=== PATIENT | female | born 1990 | race Caucasian/White ===

== ENCOUNTER 2019-01-19 09:39 | Emergency (ER) | payer OTHER ==
[2019-01-19 10:40] LABS: Absolute Lymphocytes (CBC) 2.6 K/uL (0.7-4.9); Basophils % 0.5 % (0-1.3); Eosinophils % 1.7 % (0-4.4); Hematocrit 44.8 % (36.0-45.0); Lymphocytes % 23.3 % (15.3-44.8); MPV 10.5 fL (7.6-11.3); Monocytes % 3.7 % (3.3-12.3); RBC Red Blood Cell Count 5.19 M/uL (3.86-4.86)
[2019-01-19 10:54] LABS: ALT/SGPT 19 U/L (12-78); AST/SGOT 10 U/L (15-37); Albumin 3.8 g/dL (3.4-5.0); Alkaline Phosphatase 68 U/L (45-117); BUN Blood Urea Nitrogen 10 mg/dL (7-18); Bicarbonate 22 mmol/L (21-32); Bilirubin Direct < 0.1 mg/dL (0-0.2); Bilirubin Total 0.4 mg/dL (0.2-1.0); Glucose Level 91 mg/dL (74-106); Lipase 115 U/L (73-393); Potassium 4.1 mmol/L (3.5-5.1); Protein, Total 7.3 g/dL (6.4-8.2); Sodium Level 142 mmol/L (136-145)
--- NOTE | 2019-01-19 11:03 | RAD REPORT ---
EXAM DESCRIPTION: CT - Stone Protocol - 01/19/2019 10:49 am CLINICAL HISTORY: Flank pain. bilateral pelvic pain L>R COMPARISON: <Comparisons> TECHNIQUE: Axial images were obtained without oral or IV contrast. Lack of contrast limits solid org an and vascular assessment. The [id number] spans the entirety of the system partially obscuring uppermost abdomen and lung bases. Coronal reformatted images were obtained and reviewed. All CT scans are performed using dose optimization technique as appropriate and may include automated exposure control or mA/KV adjustment according to patient size. FINDINGS: The lower lung park are clear. Imaged portions of the liver and spleen show no suspicious findings on non-contrast imaging. The panc reas and adrenal glands are normal. No pathologic lymphadenopathy in the abdomen or pelvis. No urinary tract stones or obstructive uropathy. No bowel obstruction, free air, free fluid or abscess. Sigmoid diverticulosis without diverticulitis. Normal appendix noted.Small fat containing umbilical hernia. No significant bony abnormality. IMPRESSION: No urinary tract stones or obstructive uropathy.
[2019-01-19 11:32] LABS: Platelet Estimate ADEQ; Urine White Blood Cell Casts OK
[2019-01-19 11:33] LABS: Blood Morphology Comment NOT SEEN (NOT SEEN)
--- NOTE | 2019-01-19 11:33 | RAD REPORT ---
EXAM DESCRIPTION: US - Pelvis Complete - 01/19/2019 11:26 am CLINICAL HISTORY: pelvic pain, rule out torsion/ruptured cyst Pelvic pain. COMPARISON: No comparisons FINDINGS: The uterus is normal in size, shape and echotexture. The uterus measures 7.5 x 4.9 x 4.2 c m. The endometrial stripe measures 8 mm, normal. Both ovaries are normal in size, shape and echotexture. The right ovary measures 2.0 x 1.4 x 0.9 cm. The left ovary measures 2.8 x 1.9 x 1.1 cm. No ovarian or parovarian lesions. No adnexal masses. Normal Doppler blood flow was demonstrated to both ovaries. No significant pelvic ascites. IMPRESSION: Unremarkable study.
[2019-01-19 11:50] LABS: Urine Bacteria <20 /HPF (<20); Urine Culture Reflex Order NOT NEEDED; Urine RBC <5 /HPF (NONE SEEN)
--- NOTE | 2019-01-19 12:14 | ER ---
Nurse's Notes [facility] Name: Licha Hazel Age: 28 yrs Sex: Female : 1990 Arrival Date: 01/19/2019 Time: 09:41 Bed 15 Private MD: Diagnosis: Abdominal and pelvic pain Presentation: 01/19 09:50 Presenting complaint: Patient states: Urine frequency and vaginal discharge, denies rb1 odor. Abdominal pain in the lower abdomen. Transition of care: patient was not received from another setting of care. Risk Assessment: Do you want to hurt yourself or someone else? Patient reports no desire to harm self or others. Initial Sepsis Screen: Does the patient meet any 2 criteria? No. Patient's initial sepsis screen is negative. Does the patient have a suspected source of infection? No. Patient's initial sepsis screen is negative. Care prior to arrival: None. 09:50 Method Of Arrival: Ambulatory [facility] 09:50 Acuity: HUGO 3 rb1 09:50 Onset of symptoms was January 19, 2019. rb1 Triage Assessment: 09:50 General: Appears in no apparent distress. comfortable, Behavior is calm, cooperative. rb1 General: Reports fatigue for. Pain: Complains of pain in right lower quadrant and left lower quadrant Pain radiates to left low back and bilateral legs Pain currently is 8 out of 10 on a pain scale. Neuro: Level of Consciousness is awake, alert, obeys commands, Oriented to person, place, time, situation. Cardiovascular: Capillary refill < 3 seconds is brisk in bilateral fingers. Respiratory: Airway is patent Respiratory effort is even, unlabored, Respiratory pattern is regular, symmetrical. GI: Reports constipation, nausea. : Reports urinary frequency. : Reports normal vaginal discharge, denies odor. Derm: Skin is pink, warm \T\ dry. Musculoskeletal: Range of motion: intact in all extremities. 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 - Social history:: Smoking status: Patient/guardian denies using tobacco. - Family history:: not pertinent. - Ebola Screening: : Patient negative for fever greater than or equal to 101.5 degrees Fahrenheit, and additional compatible Ebola Virus Disease symptoms. - Hospitalizations: : No recent hospitalization is reported. Screenin:50 Abuse screen: Denies threats or abuse. Nutritional screening: No deficits noted. rb1 Tuberculosis screening: No symptoms or risk factors identified. Fall Risk None identified. Assessment: 09:50 General: See triage assessment. rb1 10:40 Reassessment: Patient appears in no apparent distress at this time. No changes from rb1 previously documented assessment. 10:45 Reassessment: Pt. went to CT. rb1 Vital Signs: 09:50 BP 140 / 96; Pulse 110; Resp 17; Temp 99.0(O); Pulse Ox 98% on R/A; Weight 86.18 kg rb1 (R); Height 5 ft. 5 in. (165.10 cm) (R); Pain 8/10; 09:50 Body Mass Index 31.62 (86.18 kg, 165.10 cm) rb1 ED Course: 09:41 Patient arrived in ED. as 09:50 Juliano Caba MD is Attending Physician. rn 09:50 Arm band placed on right wrist. rb1 09:50 Patient has correct armband on for positive identification. Bed in low position. Call rb1 light in reach. Side rails up X 1. Pulse ox on. NIBP on. 09:50 Inserted saline lock: 20 gauge in left forearm, using aseptic technique. ,using aseptic rb1 technique. Inserted by ZAK Lezama Blood collected. 10:20 Radiology exam delayed due to tech with OUT-PT US. sg3 10:34 Krysten Smith, RN is Primary Nurse. rb1 10:38 Triage completed. rb1 10:40 Radiology exam delayed due to PT in CT. sg3 10:49 CT completed. Patient tolerated procedure well. Patient moved back from CT. mw3 10:49 CT Stone Protocol In Process Unspecified. EDMS 11:26 US Pelvis Complete In Process Unspecified. EDMS 11:29 Ultrasound completed. Patient tolerated well. sg3 12:48 No provider procedures requiring assistance completed. IV discontinued, intact, rb1 bleeding controlled, No redness/swelling at site. Pressure dressing applied. Administered Medications: No medications were administered Outcome: 12:14 Discharge ordered by . rn 12:48 Patient left the ED. rb1 12:48 Discharged to home ambulatory. rb1 12:48 Condition: stable 12:48 Discharge instructions given to patient, Instructed on discharge instructions, follow up and referral plans. medication usage, Demonstrated understanding of instructions, follow-up care, medications, Prescriptions given X 1. Signatures: Dispatcher [employer] Mariluz Stahl Roman, MD MD rn Barber, ZAK Bashir RN rb1 Shelia Cedeno sg3 Julia Kuo mw3 Corrections: (The following items were deleted from the chart) 11:29 10:20 Radiology exam delayed due to with OUT PT US sg3 sg3 11:30 10:20 Radiology exam delayed due to with OUT-PT US sg3 sg3
--- NOTE | 2019-01-19 12:14 | EDPHYS ---
Physician Documentation [facility] Name: Licha Hazel Age: 28 yrs Sex: Female : 1990 Arrival Date: 01/19/2019 Time: 09:41 Bed 15 Private MD: ED Physician Juliano Caba HPI: 01/19 10:08 This 28 yrs old Female presents to ER via Unassigned with complaints of rn Pelvic Pain, Back Pain. 10:08 The patient presents with abdominal pain in the lower abdomen. Onset: The rn symptoms/episode began/occurred several months ago. The symptoms radiate to The symptoms are described as intermittent, sharp. Modifying factors: The symptoms are alleviated by nothing, the symptoms are aggravated by nothing. Severity of pain: At its worst the pain was moderate in the emergency department the pain is unchanged. Reports lower abd/pelvic pain, bilateral but worse on left, radiates to both sides lower back, no urinary symptoms, no vaginal discharge, no hematuria, no fever. Seen by MENTAL HEALTH NURSE PRACTITIONER and PCP for this, scheduled for outpt U/S but has not gotten it yet, came here because not getting better, but also not getting worse. On control, LMP 2 months ago. Reports that this has been going on for a few months now. . 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 - Social history:: Smoking status: Patient/guardian denies using tobacco. - Family history:: not pertinent. - Ebola Screening: : Patient negative for fever greater than or equal to 101.5 degrees Fahrenheit, and additional compatible Ebola Virus Disease symptoms. - Hospitalizations: : No recent hospitalization is reported. ROS: 10:08 Constitutional: Negative for fever, chills, and weight loss, Eyes: Negative for injury, rn pain, redness, and discharge, Neck: Negative for injury, pain, and swelling, Cardiovascular: Negative for chest pain, palpitations, and edema, Respiratory: Negative for shortness of breath, cough, wheezing, and pleuritic chest pain, Abdomen/GI: + abd pain, negative for nausea/vomiting/diarrhea Back: Negative for injury MS/Extremity: Negative for injury and deformity, Skin: Negative for injury, rash, and discoloration, Neuro: Negative for headache, weakness, numbness, tingling, and seizure. Exam: 10:08 Constitutional: This is a well developed, well nourished patient who is awake, alert, rn appears in pain, sitting legs crossed on stretcher. Head/Face: Normocephalic, atraumatic. ENT: MMM Abdomen/GI: soft, mild tenderness LLQ, no rebound Back: No spinal tenderness. No costovertebral tenderness. Full range of motion. Skin: Warm, dry with normal turgor. Normal color with no rashes, no lesions, and no evidence of cellulitis. MS/ Extremity: Pulses equal, no cyanosis. Neurovascular intact. Full, normal range of motion. Equal circumference. Neuro: Awake and alert, GCS 15, oriented to person, place, time, and situation. Cranial nerves II-XII grossly intact. Motor strength 5/5 in all extremities. Sensory grossly intact. Cerebellar exam normal. Normal gait. Vital Signs: 09:50 BP 140 / 96; Pulse 110; Resp 17; Temp 99.0(O); Pulse Ox 98% on R/A; Weight 86.18 kg rb1 (R); Height 5 ft. 5 in. (165.10 cm) (R); Pain 8/10; 09:50 Body Mass Index 31.62 (86.18 kg, 165.10 cm) rb1 MDM: 09:50 Patient medically screened. rn 12:07 Differential diagnosis: appendicitis, Endometriosis, non-specific abd pain, Ovarian rn Torsion, Ureterolithiasis, urinary tract infection, ovarian cyst, diverticulitis. 12:08 Data reviewed: vital signs, nurses notes, lab test result(s), radiologic studies, CT rn scan, and as a result, I will discharge patient. Counseling: I had a detailed discussion with the patient and/or guardian regarding: the historical points, exam findings, and any diagnostic results supporting the discharge/admit diagnosis, lab results, radiology results, the need for outpatient follow up, to return to the emergency department if symptoms worsen or persist or if there are any questions or concerns that arise at home. Special discussion: Based on the patient's Hx, exam, and Dx evaluation, there is no indication for emergent surgery or inpatient Tx. It is understood by the patient/guardian that if the Sx's persist or worsen they need to return immediately for re-evaluation. I discussed with the patient/guardian in detail that at this point there is no indication for admission to the hospital. It is understood, however, that if the symptoms persist or worsen the patient needs to return immediately for re-evaluation. 01/19 09:58 Order name: Basic Metabolic Panel; Complete Time: 11:00 rn 01/19 09:58 Order name: CBC with Diff; Complete Time: 11: rn 01/19 09:58 Order name: Creatinine for Radiology; Complete Time: : rn 01/19 09:58 Order name: Hepatic Function; Complete Time: : rn 01/19 09:58 Order name: Lipase; Complete Time: 11: rn 01/19 09:58 Order name: Urine Microscopic Only; Complete Time: 12:07 rn 01/19 09:58 Order name: IV Saline Lock; Complete Time: 10:20 rn 01/19 09:58 Order name: Labs collected and sent; Complete Time: 10:20 rn 01/19 09:58 Order name: Urine Test (obtain specimen); Complete Time: 10:19 rn 01/19 09:58 Order name: CT Stone Protocol; Complete Time: 11: rn 01/19 09:58 Order name: US Pelvis Complete; Complete Time: 11:41 rn 01/19 10:05 Order name: Urine Dipstick--Ancillary (enter results) 01/19 10:05 Order name: Urine --Ancillary (enter results) 01/19 10:53 Order name: CBC Smear Scan; Complete Time: 11:41 EDPA 01/19 09:58 Order name: Urine Dipstick-Ancillary (obtain specimen); Complete Time: 10:19 rn Administered Medications: No medications were administered Disposition: 01/19/19 12:14 Discharged to Home. Impression: Abdominal and pelvic pain. - Condition is Stable. - Discharge Instructions: Pelvic Pain, Female. - Prescriptions for Diclofenac Sodium 75 mg Oral Tablet Sustained Release - take 1 tablet by ORAL route 2 times per day; 30 tablet. - Medication Reconciliation Form, Thank You Letter, Antibiotic Education, Prescription Opioid Use form. - Follow up: Private Physician; When: As needed; Reason: Recheck today's complaints, Re-evaluation by your physician. - Problem is new. - Symptoms have improved. Signatures: Dispatcher [employer] EDJuliano Corona MD MD rn Krysten Smith RN RN rb1 Corrections: (The following items were deleted from the chart) 12:48 12:14 01/19/2019 12:14 Discharged to Home. Impression: Abdominal and pelvic pain. rb1 Condition is Stable. Forms are Medication Reconciliation Form, Thank You Letter, Antibiotic Education, Prescription Opioid Use. Follow up: Private Physician; When: As needed; Reason: Recheck today's complaints, Re-evaluation by your physician. Problem is new. Symptoms have improved. rn
[2019-01-19 13:15] LABS: Urine Blood NEGATIVE (NEG); Urine Glucose NEGATIVE (NEG); Urine Protein NEGATIVE (NEG)
== END 2019-01-19 12:48 | disposition home or self-care (01) ==
LOC: ER 09:39
DX: R10.30 Lower abdominal pain, unspecified (principal); R10.2 Pelvic and perineal pain
CPT/HCPCS: 36415; 74176; 76377; 76856; 80048; 80076; 81003; 81015; 81025; 83690; 85025; 99284

== ENCOUNTER 2019-06-15 11:17 | Emergency (ER) | payer OTHER ==
--- OUTSIDE RECORDS SUMMARY | 2019-06-15 11:19 | XMS REPORT ---
:1990 Author Care Team Providers Name Role Phone TOM BENNETT MD Primary Care Provider [phone] Allergies Code Code System Name Reaction Severity Status Onset NKDA Medications Name Status Start Date Stop Date amitriptyline 50 mg tablet Active Not available TAKE 1 TABLET AT BEDTIME ASNEEDED FOR INSOMNIA buspirone Completed 01/08/2017 buspirone 10 mg tablet Active Not available Take 1 tablet twice a day by oral route. buspirone 7.5 mg tablet Active Not available Take 1 tablet every day by oral route as needed for 90 days. cephalexin 500 mg capsule Completed 10/29/2017 Take 1 capsule every 6 hours by oral route for 7 days. citalopram Completed 01/08/2017 citalopram 10 mg tablet Active Not available TAKE 1 TABLET DAILY citalopram 20 mg tablet Active Not available Take 1 tablet every day by oral route. clonazepam 0.5 mg tablet Active Not available Take 1 tablet as needed by oral route in the evening. phentermine 37.5 mg tablet Active Not available Take 1 tablet every day by oral route in the morning. triamcinolone acetonide 0.5 % topical cream Active Not available APPLY A THIN LAYER TO THE AFFECTED AREA(S) BY TOPICAL ROUTE 2 TIMES PER DAY prn rash Problems Name Status Onset Date Source Anxiety Disorder Active 01/08/2017 Depressive Disorder Active 01/08/2017 Attention Deficit Hyperactivity Disorder Active 01/08/2017 Insomnia Active 01/08/2017 Body Mass Index 25-29 - Overweight Active 01/31/2017 Overweight Active 01/31/2017 Body Mass Index 30+ - Obesity Active 10/29/2017 Procedures Date Name Performed by 01/31/2017 XR, Shoulder [facility] [address] [place] [id number] (Work Place) Notes: Patient indicated no previous surgeries on (10/29/2017) Lab Results Date Name Specimen Result Interpretation Description Value Range Status Address 01/08/2017 CBC W/ Wbc 8.32 2.60-11.20 Final [facility] Auto x10*3/L x10*3/L [facility] [address] [facility] Rbc 4.84 3.93-5.87 Final [facility] 10*12/L 10*12/L [facility] [address] [facility] [facility] Hemoglobin 14.10 g/dL 10.70-15.70 Final [facility] g/dL [facility] [address] [facility] [facility] Hematocrit 43.0 % 33.2-46.8 % Final [facility] [address] [facility] Mcv 88.8 fL 77.8-103.4 Final [facility] fL [facility] [address] [facility] [facility] Mch 29.1 pg 24.8-35.0 pg Final [facility] [address] [facility] Mchc 32.8 g/dL 31.5-35.9 Final [facility] g/dL [facility] [address] [facility] [facility] RDW-SD 41.2 fL 35.8-50.4 fL Final [facility] [address] [facility] [facility] Platelet 277.0 k/uL 126.7-416.1 Final [facility] Count k/uL [facility] [address] [facility] Mpv 11.9 fL 8.3-13.5 fL Final [facility] [address] [facility] Neut% 64.8 % 39.5-76.9 % Final [facility] [address] [facility] Lymph% 25.6 % 12.6-45.8 % Final [facility] [address] [facility] Mon% 6.3 % 3.7-12.9 % Final [facility] [address] [facility] Eos% 3.1 % 0.7-6.4 % Final [facility] [address] [facility] Baso% 0.2 % 0.1-1.5 % Final [facility] [address] [facility] [facility] Neut# 5.4 0.6-7.6 Final [facility] x10*3/L x10*3/L Family Practice Laboratory: [address] [place] Lymph# 2.1 0.7-3.3 [facility] [place] x10*3/L x10*3/L Family Practice Laboratory: [address] [place] Mon# 0.5 0.2-1.0 [facility] [place] x10*3/L x10*3/L Family Practice Laboratory: [address] [place] Eos# 0.26 0.04-0.44 [facility] [place] x10*3/L x10*3/L Family Practice Laboratory: [address] [place] Baso# 0.02 0.01-0.08 [facility] [place] x10*3/L x10*3/L Family Practice Laboratory: [address] [place] 01/08/2017 CMP, Alt 14 U/L 0-55 U/L Final [facility] Serum or Family Plasma Practice Laboratory: [address] [place] [address] Ast 15 U/L 5-34 U/L Final [facility] Family Practice Laboratory: [address] [place] [address] Bun 12.9 mg/dL 7.0-18.7 [facility] [place] mg/dL Family Practice Laboratory: [address] Alk Phos 48 unit/L 40-150 Final [place] unit/L [facility]: [address] [facility] [facility] Low Glucose 68 mg/dL 70-99 mg/dL Final [facility] Family Practice Laboratory: [address] [place] [address] Albumin 4.0 g/dL 3.5-5.0 g/dL Final [facility] Family Practice Laboratory: [address] [place] [address] Creatinine 0.71 mg/dL 0.57-1.11 [facility] [place] mg/dL Family Practice Laboratory: [address] [place] [address] eGFR >60 >60 [facility] [place] Non- mL/min/1.7 mL/min/1.73m [address] 2 Practice [facility] [address] [facility] Total 0.5 mg/dL 0.2-1.2 [facility] [place] Bilirubin mg/dL Family Practice Laboratory: [address] eGFR - >60 >60 [facility] [place] mL/min/1.7 mL/min/1.73m [place] [address] 2 Practice Laboratory: [address] [place] [address], [place] Sodium 138 mEq/L 136-145 Final [facility] mEq/L Family Practice Laboratory: [address] Potassium 4.7 mEq/L 3.5-5.1 Final [facility] mEq/L Family Practice Laboratory: [address] [place] [address], [place] Chloride 105 mmol/L 98-107 Final [facility] mmol/L Family Practice Laboratory: [address] [place] [address], [place] Total Protein 7.0 g/dL 6.4-8.3 g/dL Final [facility] Family Practice Laboratory: [address] [place] [address], [place] Calcium 9.1 mg/dL 8.4-10.2 Final [facility] mg/dL Family Practice Laboratory: [address] [place] [address], [place] Co2 25.2 22.0-29.0 Final [facility] mmol/L mmol/L Family Practice Laboratory: [address] Anion Gap 8 calc Final [facility] Family Practice Laboratory: [address] 01/08/2017 Lipid Hdl 46 mg/dL 40-60 mg/dL Final [facility] Panel, Family Serum Practice Laboratory: [address] Triglyceride 48 mg/dL 0-149 mg/dL Final [facility] Family Practice Laboratory: [address] VLDL Calc. 10 mg/dL Final [facility] Family Practice Laboratory: [address] cholesterol/H 3 mg/dL Final [facility] DL Ratio Family Practice Laboratory: [address] non-HDL 105 mg/dL 0-160 mg/dL Final [facility] Cholesterol Family Calc. Practice Laboratory: [address] Cholesterol 151 mg/dL 0-199 mg/dL Final [facility] Family Practice Laboratory: [address] LDL Calc. 95 mg/dL 0-130 mg/dL Final [facility] Family Practice Laboratory: [address] 01/08/2017 TSH, Tsh 0.775 0.350-4.940 Final [facility] Serum or uIU/mL uIU/mL [facility] Plasma Practice Laboratory: [address] Past Encounters 10/29/2017 Anxiety Disorder; Depressive Disorder; Vesicular Eczema of Hands And/or Feet; Overweight; Body Mass Index 30+ - Obesity Tom Bennett MD: [address], [address], [place] [address], Ph. [phone] 01/31/2017 Shoulder Pain; Vesicular Eczema of Hands And/or Feet; Insomnia; Anxiety Disorder; Depressive Disorder; Overweight; Body Mass Index 25-29 - Overweight Tom Bennett MD: [address], [address], [place] [address], Ph. 01/08/2017 Adult Health Examination; Depressive Disorder; Anxiety Disorder; Insomnia; Attention Deficit Hyperactivity Disorder; Vesicular Eczema of Hands And/or Feet Tom Bennett MD: [address], [address], [place] [address], Ph. Social History Smoking Status Former Smoker (2 PPD) Vaccine List Vaccine Type Tdap 07/23/2014 Notes: Flu vax - declined Plan of Care Patient Instructions RTC 2 mo CPX RTC prn RTC Wt prn Reminders Provider Appointments None recorded. Lab None recorded. Referral None recorded. Procedures None recorded. Surgeries None recorded. Imaging None recorded. 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
--- OUTSIDE RECORDS SUMMARY | 2019-06-15 11:19 | XMS REPORT ---
:1990 [facility] [address] [place] [address] [place] [address] Care Team Providers Name Role Phone Unavailable Unavailable Unavailable Problems This patient has no known problems. Allergies, Adverse Reactions, Alerts This patient has no known allergies or adverse reactions. Medications This patient has no known medications.
[2019-06-15] MEDS ORDERED: dexAMETHasone 10 MG/ML VIAL ONE (12:14)
[2019-06-15] MEDS ORDERED: ALBUTEROL 2.5 MG/3 ML NEB SOL ONE (12:14)
--- NOTE | 2019-06-15 13:26 | ER ---
Nurse's Notes [facility] Name: iLcha Hazel Age: 28 yrs Sex: Female : 1990 Arrival Date: 06/15/2019 Time: 11:20 Bed 24 Private MD: Diagnosis: Acute bronchitis Presentation: 06/15 11:26 Presenting complaint: Patient states: non-productive cough, dyspnea, fatigue x 1 week. sv Transition of care: patient was not received from another setting of care. Onset of symptoms was June 08, 2019. Risk Assessment: Do you want to hurt yourself or someone else? Patient reports no desire to harm self or others. Care prior to arrival: None. 11:26 Method Of Arrival: Ambulatory sv 11: Acuity: HUGO 3 sv :28 Initial Sepsis Screen: Does the patient meet any 2 criteria? No. Patient's initial sv sepsis screen is negative. Does the patient have a suspected source of infection? No. Patient's initial sepsis screen is negative. Historical: - Allergies: 11: No Known Allergies; sv - PMHx: 11: Kidney Infections; sv - PSHx: 11: None; sv - Immunization history:: Flu vaccine is not up to date. - Social history:: Smoking status: Patient/guardian denies using tobacco. - Ebola Screening: : No symptoms or risks identified at this time. Screenin:05 Abuse screen: Denies threats or abuse. Denies injuries from another. Nutritional iw screening: No deficits noted. Tuberculosis screening: No symptoms or risk factors identified. Fall Risk None identified. Assessment: 12:05 General: Appears in no apparent distress. Behavior is calm, cooperative. Pain: Denies iw pain. Neuro: Level of Consciousness is awake, alert, obeys commands. Cardiovascular: Denies chest pain, Capillary refill < 3 seconds in bilateral fingers Patient's skin is warm and dry. Rhythm is regular. Respiratory: Reports cough that is non-productive, dry, Airway is patent Respiratory effort is even, unlabored, Breath sounds are clear bilaterally. Derm: Skin is intact, is healthy with good turgor. Musculoskeletal: Range of motion: intact in all extremities. Vital Signs: : BP 130 / 77; Pulse 98; Resp 20; Temp 98.9; Pulse Ox 100% ; Weight 89.36 kg; Height 5 sv ft. 5 in. (165.10 cm); Pain 0/10; 11:28 Body Mass Index 32.78 (89.36 kg, 165.10 cm) sv ED Course: 11:20 Patient arrived in ED. mr 11:27 Triage completed. sv 11:28 Arm band placed on. sv 11:54 Clarence Ashley PA is PHCP. [facility] 11:54 Leandro Preciado MD is Attending Physician. [facility] 11:57 Soraya Andrews, RN is Primary Nurse. iw Administered Medications: 12:40 Drug: Decadron 10 mg Route: IM; Site: right deltoid; iw 12:48 Drug: Albuterol 2.5 mg Route: Inhalation; iw Outcome: 13:26 Discharge ordered by . [facility] 13:40 Patient left the ED. iw Signatures: Lisa Mak, RN RN Clarence Ashley PA PA [facility] [place] mr Soraya Andrews, ZAK RN iw Corrections: (The following items were deleted from the chart) 11:28 11:26 Presenting complaint: Patient states: non-productive cough, dyspnea x 1 week. sv sv
--- NOTE | 2019-06-15 13:26 | EDPHYS ---
Physician Documentation [facility] Name: Lihca Hazel Age: 28 yrs Sex: Female : 1990 Arrival Date: 06/15/2019 Time: 11:20 Bed 24 Private MD: ED Physician Leandro Preciado HPI: 06/15 11:59 This 28 yrs old Female presents to ER via Ambulatory with complaints of jmm Breathing Difficulty. 11:59 The patient or guardian reports cough. Onset: The symptoms/episode began/occurred jmm gradually, 1 week(s) ago. Modifying factors: The symptoms are alleviated by nothing. the symptoms are aggravated by nothing. Associated signs and symptoms: Pertinent positives: sore throat. This is a 28 year old female with no chronic medical conditions that presents to the ED with complaints of cough, congestion, hoarseness beginning last week. Child was diagnosed with a viral infection. Patient denies vomiting or diarrea. . Historical: - Allergies: 11:27 No Known Allergies; sv - PMHx: 11:27 Kidney Infections; sv - PSHx: 11:27 None; sv - Immunization history:: Flu vaccine is not up to date. - Social history:: Smoking status: Patient/guardian denies using tobacco. - Ebola Screening: : No symptoms or risks identified at this time. ROS: 11:59 Constitutional: Positive for body aches, chills. jmm 11:59 ENT: Positive for sinus congestion, sore throat. 11:59 Respiratory: Positive for cough. 11:59 All other systems are negative. Exam: 11:59 Constitutional: This is a well developed, well nourished patient who is awake, alert, jmm and in no acute distress. Head/Face: atraumatic. Eyes: EOMI, no conjunctival erythema appreciated ENT: Moist Mucus Membranes Neck: Trachea midline, Supple Chest/axilla: Normal chest wall appearance and motion. 11:59 Back: Normal ROM Skin: General appearance color normal MS/ Extremity: Moves all extremities, no obvious deformities appreciated, no edema noted to the lower extremities Neuro: Awake and alert, normal gait Psych: Behavior is normal, Mood is normal, Patient is cooperative and pleasant 11:59 Cardiovascular: Rate: normal, Rhythm: regular, Pulses: no pulse deficits are appreciated. 11:59 Respiratory: the patient does not display signs of respiratory distress, Respirations: normal, Breath sounds: are clear throughout. 11:59 Abdomen/GI: Inspection: abdomen appears normal, Bowel sounds: normal. Vital Signs: 11:28 BP 130 / 77; Pulse 98; Resp 20; Temp 98.9; Pulse Ox 100% ; Weight 89.36 kg; Height 5 sv ft. 5 in. (165.10 cm); Pain 0/10; 11:28 Body Mass Index 32.78 (89.36 kg, 165.10 cm) sv MDM: 11:58 Patient medically screened. [facility] 13:25 Data reviewed: vital signs, nurses notes. Counseling: I had a detailed discussion with oly the patient and/or guardian regarding: the historical points, exam findings, and any diagnostic results supporting the discharge/admit diagnosis, radiology results, the need for outpatient follow up, to return to the emergency department if symptoms worsen or persist or if there are any questions or concerns that arise at home. ED course: Patient states she feels much better in the ED. No signs of resp distress appreciated. Symptoms appear most likely due to viral illness. Patient advised to follow up with pcp and otherwise given strict return precautions. . 06/15 11:29 Order name: Flu; Complete Time: 12:08 sv 06/15 11:29 Order name: Strep; Complete Time: 12:03 sv 06/15 12:05 Order name: Throat Culture EDMS Administered Medications: 12:40 Drug: Decadron 10 mg Route: IM; Site: right deltoid; iw 12:48 Drug: Albuterol 2.5 mg Route: Inhalation; iw Disposition: 06/16 07:51 Co-signature as Attending Physician, Leandro Preciado MD I agree with the assessment and kdr plan of care. Disposition: 06/15/19 13:26 Discharged to Home. Impression: Acute bronchitis. - Condition is Stable. - Discharge Instructions: Acute Bronchitis, Adult. - Prescriptions for Prednisone 20 mg Oral Tablet - take 3 tablet by ORAL route once daily for 5 days; 15 tablet. Albuterol Sulfate 90 mcg/actuation - inhale 1-2 puff by INHALATION route every 4-6 hours; 1 Inhaler. - Medication Reconciliation Form, Thank You Letter, Antibiotic Education, Prescription Opioid Use, Work release form form. - Follow up: Private Physician; When: 2 - 3 days; Reason: Recheck today's complaints, Continuance of care, Re-evaluation by your physician. Signatures: Dispatcher [employer] Lisa Ordaz, RN RN Leandro Miranda MD MD kdr Mickail, Joel, PA PA jmm Williams, Irene, RN RN iw Corrections: (The following items were deleted from the chart) 06/15 13:39 13:26 06/15/2019 13:26 Discharged to Home. Impression: Acute bronchitis. Condition is iw Stable. Forms are Medication Reconciliation Form, Thank You Letter, Antibiotic Education, Prescription Opioid Use. Follow up: Private Physician; When: 2 - 3 days; Reason: Recheck today's complaints, Continuance of care, Re-evaluation by your physician. oly
[2019-06-15 13:46] VITALS: BP 130/77; TEMP 98.9; O2SAT 100
== END 2019-06-15 13:39 | disposition home or self-care (01) ==
LOC: ER 11:17
DX: J20.9 Acute bronchitis, unspecified (principal)
CPT/HCPCS: 87070; 87081; 87804 ×2; 96372; 99284; J1100

== ENCOUNTER 2019-08-29 09:29 | Emergency (ER) | payer OTHER ==
--- OUTSIDE RECORDS SUMMARY | 2019-08-29 09:30 | XMS REPORT ---
:1990 [facility] Address [address] [place] [address] [place] [id number] Care Team Providers Name Role Phone Unavailable Unavailable Unavailable Problems This patient has no known problems. Allergies, Adverse Reactions, Alerts This patient has no known allergies or adverse reactions. Medications This patient has no known medications.
--- NOTE | 2019-08-29 11:01 | ER ---
Nurse's Notes [facility] Name: Licha Hazel Age: 29 yrs Sex: Female : 1990 Arrival Date: 08/29/2019 Time: 09:30 Bed External Waiting Private MD: Diagnosis: ED Course: 08/29 09:30 Patient arrived in ED. as 09:57 [facility]C [facility] snw 09:57 Sam Jacinto MD is Attending Physician. snw 11:00 Soraya Andrews, ZAK is Primary Nurse. iw Administered Medications: No medications were administered Outcome: 11:00 Eloped from waiting room, before seeing physician iw 11:01 Patient left the ED. iw Signatures: Linda Echevarria FNP-C FNP-Mariluz Black as Soraya Andrews, RN RN iw
== END 2019-08-29 11:01 | disposition left against medical advice (07) ==
LOC: ER 09:29
DX: Z02.9 Encounter for administrative examinations, unspecified (principal); Z53.21 Procedure and treatment not carried out due to patient leaving prior to being seen by health care provider

== ENCOUNTER 2020-08-21 15:02 | Emergency (ER) | payer OTHER, SELFPAY ==
--- OUTSIDE RECORDS SUMMARY | 2020-08-21 15:05 | XMS REPORT | Continuity of Care Document ---
:1990 Author Organization [facility] t Address [address] [place] [address] Care Team Providers Name Role Phone Rufina Fish Attending Clinician Doctor Unassigned, Name Attending Clinician Unavailable Problems Condition Condition Condition Status Onset Resolution Last Treating Co mments Source Name Details Category Date Date Treatment Clinician Date Body mass Body Mass Problem Active Ryan jaylon index 30+ Index 30+ 4-09 Fami ly - obesity - Obesity 00:00: Prac tic 00 e Body mass Body Mass Problem Active Ryan jaylon index Index 7-12 Family 25-29 - 25-29 - 00:00: Practic overweight Overweight 00 e Overweight Overweight Problem Active V illage 7-12 Family 00:00: Practic 00 e Anxiety Anxiety Problem Active [place] disorder Disorder 6-19 Family 00:00: Practic 00 e Depressive Depressive Problem Active V illage disorder Disorder 6-19 Family 00:00: Practic 00 e Attention Attention Problem Active Ryan jaylon deficit Deficit 6-19 Family hyperactiv Hyperactiv 00:00: Pr actic ity ity 00 e disorder Disorder Insomnia Insomnia Problem Active Olmos ge 6-19 Family 00:00: Practic 00 e Allergies, Adverse Reactions, Alerts This patient has no known allergies or adverse reactions. Social History Smoking Status Start Date Stop Date Source Former Smoker [facility] Medications Ordered Filled Start Stop Current Ordering Indication Dosage Frequency Signature Comments Components Source Medication Medication Date Date Medication? Clinician (SIG) Name Name amitriptyli amitriptyli No amitriptyl [facility] ne 50 mg ne 50 mg ine 50 mg Fa sangita tablet TAKE tablet TAKE tablet Practic 1 TABLET AT 1 TABLET AT TAKE 1 e BEDTIME BEDTIME TABLET AT ASNEEDED ASNEEDED BEDTIME FOR FOR ASNEEDED INSOMNIA INSOMNIA FOR INSOMNIA buspirone buspirone No 1 BID buspirone [facility] 10 mg 10 mg 10 mg Family tablet Take tablet Take tablet Practic 1 tablet 1 tablet Take 1 e twice a day twice a day tablet by oral by oral twice a route. route. day by oral route. buspirone buspirone No 1 Q1D buspirone [facility] 7.5 mg 7.5 mg 7.5 mg Family tablet Take tablet Take tablet Practic 1 tablet 1 tablet Take 1 e every day every day tablet by oral by oral every day route as route as by oral needed for needed for route as 90 days. 90 days. needed for 90 days. citalopram citalopram No citalopram [facility] 10 mg 10 mg 10 mg Family tablet TAKE tablet TAKE tablet Practic 1 TABLET 1 TABLET TAKE 1 e DAILY DAILY TABLET DAILY citalopram citalopram No 1 Q1D citalopram [facility] 20 mg 20 mg 20 mg Family tablet Take tablet Take tablet Practic 1 tablet 1 tablet Take 1 e every day every day tablet by oral by oral every day route. route. by oral route. clonazepam clonazepam No 1 clonazepam [facility] 0.5 mg 0.5 mg 0.5 mg Family tablet Take tablet Take tablet Practic 1 tablet as 1 tablet as Take 1 e needed by needed by tablet as oral route oral route needed by in the in the oral route evening. evening. in the evening. phentermine phentermine No 1 Q1D phentermin [facility] 37.5 mg 37.5 mg e 37.5 mg Fami ly tablet Take tablet Take tablet Practic 1 tablet 1 tablet Take 1 e every day every day tablet by oral by oral every day route in route in by oral the the route in morning. morning. the morning. triamcinolo triamcinolo No triamcinol [facility] ne ne one Family acetonide acetonide acetonide Practic 0.5 % 0.5 % 0.5 % e topical topical topical cream APPLY cream APPLY cream A THIN A THIN APPLY A LAYER TO LAYER TO THIN LAYER THE THE TO THE AFFECTED AFFECTED AFFECTED AREA(S) BY AREA(S) BY AREA(S) BY TOPICAL TOPICAL TOPICAL ROUTE 2 ROUTE 2 ROUTE 2 TIMES PER TIMES PER TIMES PER DAY prn DAY prn DAY prn rash rash rash cephalexin cephalexin 1capsul Q6H cephalexin [facility] 500 mg 500 mg 10-29 e(s) 500 mg Family capsule capsule 00:00 capsule Pract ic Take 1 Take 1 :00 Take 1 e capsule capsule capsule every 6 every 6 every 6 hours by hours by hours by oral route oral route oral route for 7 days. for 7 days. for 7 days. buspirone buspirone buspirone [facility] 01-08 [facility] 00:00 Practic :00 e citalopram citalopram citalopram [facility] 01-08 [facility] 00:00 Practic :00 e Immunizations Ordered Immunization Filled Immunization Date Status Commen ts Source Name Name Tdap Tdap 2014-07-23 Completed [facility] 00:00:00 Practice Vital Signs Vital Name Observation Time Observation Value Comments Source BP Diastolic 2017-10-29 00:00:00 78 mm[Hg] [facility] Height 2017-10-29 00:00:00 65 [in_i] [facility] BMI (Body Mass 2017-10-29 00:00:00 31.2 kg/m2 [facility] e Family Index) Practice BP Systolic 2017-10-29 00:00:00 122 mm[Hg] [facility] Body Weight 2017-10-29 00:00:00 187.6 [lb_av] [facility] BP Diastolic 2017-01-31 00:00:00 74 mm[Hg] [facility] Height 2017-01-31 00:00:00 65 [in_i] [facility] BMI (Body Mass 2017-01-31 00:00:00 25.3 kg/m2 [facility] e Family Index) Practice BP Systolic 2017-01-31 00:00:00 122 mm[Hg] [facility] Body Weight 2017-01-31 00:00:00 152 [lb_av] [facility] BP Diastolic 2017-01-08 00:00:00 74 mm[Hg] [facility] Height 2017-01-08 00:00:00 65 [in_i] [facility] BMI (Body Mass 2017-01-08 00:00:00 25.3 kg/m2 [facility] e Family Index) Practice BP Systolic 2017-01-08 00:00:00 122 mm[Hg] [facility] Body Weight 2017-01-08 00:00:00 152 [lb_av] [facility] Procedures Procedure Date / Time Performed Performing [facility] 2017-01-31 00:00:00 [facility] Plan of Care Planned Activity Planned Date Details Comments Source Instructions [facility] Instructions [facility] Instructions [facility] Encounters Start End Encounter Admission Attending Care Care Encounter Source Date/Time Date/Time Type Type Clinicians Facility Department ID 2019-08-29 2019-08-29 [place] [id number] 11:02:51 14:18:00 Radha Mars [id number] [place] [id number] [place] [id number] 2019-08-29 2019-08-29 Orders Doctor JURADO [id number] 00:00:00 00:00:00 Only Unassigned, JOSE ALFREDO [id number] [place] [facility] [id number] 2017-10-29 2017-10-29 Tom Vail [facility] [place] - [id number] [facility] 00:00:00 00:00:00 MD Donald: Stacy Famil y [address], Practice - [address], [place] [address] , Ph. 2017-01-31 2017-01-31 Tom V[place] [facility] [place] - [id number] [facility] 00:00:00 00:00:00 MD Donald: Stacy Famil y [address] [place], Practice - [address], [place] [address] , Ph. 2017-01-08 2017-01-08 Tom Vail [facility] [place] - [id number] 9 [facility] 00:00:00 00:00:00 MD Donald: Stacy Macias y [address], Practice - [address], [place] [address] , Ph. Results Test Description Test Time Test Comments Results Result Comments Source Comprehensive metabolic 2000 panel - Serum or Plasma 2016-12 15:13:00 Test Item Value Reference Range Interpretation Comme nts ALT (test code = ALT) 14 U/L 0-55 AST (test code = AST) 15 U/L 5-34 BUN (test code = BUN) 12.9 mg/dL 7.0-18.7 alk phos (test code = alk phos) 48 unit/L 40-150 glucose (test code = glucose) 68 mg/dL 70-99 L albumin (test code = albumin) 4.0 g/dL 3.5-5.0 creatinine (test code = creatinine) 0.71 mg/dL 0.57-1.11 eGFR non- (test code = eGFR non- >60 >60 georgian) total bilirubin (test code = total bilirubin) 0.5 mg/dL 0.2-1.2 eGFR - (test code = eGFR - >60 >6 0 georgian) sodium (test code = sodium) 138 mEq/L 136-145 potassium (test code = potassium) 4.7 mEq/L 3.5-5.1 chloride (test code = chloride) 105 mmol/L 98-107 total protein (test code = total protein) 7.0 g/dL 6.4-8.3 calcium (test code = calcium) 9.1 mg/dL 8.4-10.2 CO2 (test code = CO2) 25.2 mmol/L 22.0-29.0 anion gap (test code = anion gap) 8 [facility] - Serum or [id number] 15:13:00 Test Item Value Reference Range Interpretation Comments HDL (test code = HDL) 46 mg/dL 40-60 triglyceride (test code = 48 mg/dL 0-149 triglyceride) VLDL calc. (test code = VLDL calc.) 10 mg/dL cholesterol/HDL ratio (test code = 3 mg/dL cholesterol/HDL ratio) non-HDL cholesterol calc. (test 105 mg/dL 0-160 code = non-HDL cholesterol calc.) cholesterol (test code = 151 mg/dL 0-199 cholesterol) LDL calc. (test code = LDL calc.) 95 mg/dL 0-130 [facility]Units/volume] in Serum or [id number] 15:13:00 Test Item Value Reference Range Interpretation Comments TSH (test code = TSH) 0.775 uIU/mL 0.350-4.[address] [facility] W Auto Differential panel - [id number] 16:49:00 Test Item Value Reference Range Interpretation Comments WBC (test code = WBC) 8.32 x10*3/?L 2.60-11.20 RBC (test code = RBC) 4.84 10*12/L 3.93-5.87 hemoglobin (test code = 14.10 g/dL 10.70-15.70 hemoglobin) hematocrit (test code = 43.0 % 33.2-46.8 hematocrit) MCV (test code = MCV) 88.8 fL 77.8-103.4 MCH (test code = MCH) 29.1 pg 24.8-35.0 MCHC (test code = MCHC) 32.8 g/dL 31.5-35.9 RDW-SD (test code = RDW-SD) 41.2 fL 35.8-50.4 platelet count (test code = 277.0 k/uL 126.7-416.1 platelet count) MPV (test code = MPV) 11.9 fL 8.3-13.5 neut% (test code = neut%) 64.8 % 39.5-76.9 lymph% (test code = lymph%) 25.6 % 12.6-45.8 mon% (test code = mon%) 6.3 % 3.7-12.9 eos% (test code = eos%) 3.1 % 0.7-6.4 baso% (test code = baso%) 0.2 % 0.1-1.5 neut# (test code = neut#) 5.4 x10*3/?L 0.6-7.6 lymph# (test code = lymph#) 2.1 x10*3/?L 0.7-3.3 mon# (test code = mon#) 0.5 x10*3/?L 0.2-1.0 eos# (test code = eos#) 0.26 x10*3/?L 0.04-0.44 baso# (test code = baso#) 0.02 x10*3/?L 0.01-0.08 [facility]
[2020-08-21] MEDS ORDERED: HYDROCODONE/APAP 7.5/325 MG TAB ONE ×2 (15:33→15:35)
--- NOTE | 2020-08-21 15:59 | EDPHYS ---
Physician Documentation [facility] Name: Licah Hazel Age: 30 yrs Sex: Female : 1990 Arrival Date: 08/21/2020 Time: 15:05 Bed 7 Private MD: ED Physician Sam Jacinto HPI: 08/21 15:47 This 30 yrs old Female presents to ER via Ambulatory with complaints of Foot kb Injury. 15:47 The patient presents with decreased range of motion, an injury, pain, swelling, kb tenderness. The complaints affect the right foot. Context: The problem was sustained at home, resulted from a mis-step by the patient, the patient can partially bear weight, must have assistance. Onset: The symptoms/episode began/occurred just prior to arrival. Modifying factors: The symptoms are alleviated by nothing, the symptoms are aggravated by weight bearing, movement. Associated signs and symptoms: Pertinent positives: swelling, Pertinent negatives: calf tenderness, fever, nausea, numbness, rash, tingling, vomiting, warmth, weakness. Severity of symptoms: At their worst the symptoms were moderate, in the emergency department the symptoms are unchanged. The patient has not experienced similar symptoms in the past. The patient has not recently seen a physician. Historical: - Allergies: 15:11 No Known Allergies; hb - PMHx: 15:11 Kidney Infections; hb - Immunization history:: Adult Immunizations up to date. - Social history:: Smoking status: Patient denies any tobacco usage or history of. ROS: 15:46 Constitutional: Negative for fever, chills, and weight loss, Cardiovascular: Negative kb for chest pain, palpitations, and edema, Respiratory: Negative for shortness of breath, cough, wheezing, and pleuritic chest pain, Abdomen/GI: Negative for abdominal pain, nausea, vomiting, diarrhea, and constipation, Back: Negative for injury and pain, Skin: Negative for injury, rash, and discoloration, Neuro: Negative for headache, weakness, numbness, tingling, and seizure. 15:46 MS/extremity: Positive for injury or acute deformity, ecchymosis, pain, swelling, tenderness, of the right foot. Exam: 15:46 Constitutional: This is a well developed, well nourished patient who is awake, alert, kb and in no acute distress. Head/Face: Normocephalic, atraumatic. Chest/axilla: Normal chest wall appearance and motion. Nontender with no deformity. No lesions are appreciated. Cardiovascular: Regular rate and rhythm with a normal S1 and S2. No gallops, murmurs, or rubs. Normal PMI, no JVD. No pulse deficits. Respiratory: Lungs have equal breath sounds bilaterally, clear to auscultation and percussion. No rales, rhonchi or wheezes noted. No increased work of breathing, no retractions or nasal flaring. Abdomen/GI: Soft, non-tender, with normal bowel sounds. No distension or tympany. No guarding or rebound. No evidence of tenderness throughout. Skin: Warm, dry with normal turgor. Normal color with no rashes, no lesions, and no evidence of cellulitis. Neuro: Awake and alert, GCS 15, oriented to person, place, time, and situation. Cranial nerves II-XII grossly intact. Motor strength 5/5 in all extremities. Sensory grossly intact. Cerebellar exam normal. Normal gait. 15:46 Musculoskeletal/extremity: Extremities: grossly normal except: noted in the right foot: decreased ROM, ecchymosis, pain, swelling, tenderness, ROM: intact in all extremities, Circulation is intact in all extremities. Sensation intact. Weight bearing: can bear weight with assistance only. Vital Signs: 15:14 BP 135 / 80; Pulse 98; Resp 16; Temp 99.1(TE); Pulse Ox 98% on R/A; Weight 79.38 kg; ss Height 5 ft. 6 in. (167.64 cm); Pain 10/10; 15:14 Body Mass Index 28.25 (79.38 kg, 167.64 cm) ss MDM: 15:08 Patient medically screened. kb 15:45 Data reviewed: vital signs, nurses notes. Data interpreted: Pulse oximetry: on room air kb is 98 %. Interpretation: normal. 15:58 Counseling: I had a detailed discussion with the patient and/or guardian regarding: the kb historical points, exam findings, and any diagnostic results supporting the discharge/admit diagnosis, radiology results, the need for outpatient follow up, a family practitioner, to return to the emergency department if symptoms worsen or persist or if there are any questions or concerns that arise at home. 08/21 15:12 Order name: Foot Right 3 View XRAY kb 08/21 15:59 Order name: Alexander Wrap; Complete Time: 16:03 kb Administered Medications: 15:21 Drug: [place] (7.5 mg-325 mg) 1 tabs Route: PO; hb 16:03 Follow up: Response: No adverse reaction hb Disposition: 08/21/20 15:59 Discharged to Home. Impression: Other sprain of right foot. - Condition is Stable. - Discharge Instructions: Foot Sprain. - Prescriptions for Diclofenac Sodium 75 mg Oral Tablet, Delayed Release (E.C.) - take 1 tablet by ORAL route 2 times per day As needed; 30 tablet. - Medication Reconciliation Form, Thank You Letter, Antibiotic Education, Prescription Opioid Use form. - Follow up: Emergency Department; When: As needed; Reason: Worsening of condition. Follow up: Private Physician; When: 2 - 3 days; Reason: Recheck today's complaints, Continuance of care, Re-evaluation by your physician. Addendum: 08/23/2020 18:01 Co-signature as Attending Physician, Sam Jacinto MD. m a2 Signatures: Dispatcher [employer] EDAZ Claritza Melo, NESTOR-C NESTOR-Lizz Miles RN RN Sam Jacinto MD MD ma2 Corrections: (The following items were deleted from the chart) 08/21 16:12 15:59 08/21/2020 15:59 Discharged to Home. Impression: Other sprain of right foot. hb Condition is Stable. Forms are Medication Reconciliation Form, Thank You Letter, Antibiotic Education, Prescription Opioid Use. Follow up: Emergency Department; When: As needed; Reason: Worsening of condition. Follow up: Private Physician; When: 2 - 3 days; Reason: Recheck today's complaints, Continuance of care, Re-evaluation by your physician. kb
--- NOTE | 2020-08-21 15:59 | ER ---
Nurse's Notes [facility] Name: Licha Hazel Age: 30 yrs Sex: Female : 1990 Arrival Date: 08/21/2020 Time: 15:05 Bed 7 Private MD: Diagnosis: Other sprain of right foot Presentation: 08/21 15:14 Chief complaint: Patient states: R lateral ankle pain that began after stepping into a ss hole this morning. Coronavirus screen: Client denies travel out of the [place] in the last 14 days. Ebola Screen: Patient denies exposure to infectious person. Patient denies travel to an Ebola-affected area in the 21 days before illness onset. Initial Sepsis Screen: Does the patient meet any 2 criteria? No. Patient's initial sepsis screen is negative. Does the patient have a suspected source of infection? No. Patient's initial sepsis screen is negative. Risk Assessment: Do you want to hurt yourself or someone else? Patient reports no desire to harm self or others. Onset of symptoms was August 21, 2020. 15:14 Method Of Arrival: Ambulatory ss 15:14 Acuity: HUGO 4 ss Historical: - Allergies: 15:11 No Known Allergies; hb - PMHx: 15:11 Kidney Infections; hb - Immunization history:: Adult Immunizations up to date. - Social history:: Smoking status: Patient denies any tobacco usage or history of. Screenin:11 Abuse screen: Denies threats or abuse. Denies injuries from another. Nutritional hb screening: No deficits noted. Tuberculosis screening: No symptoms or risk factors identified. Fall Risk None identified. Assessment: 15:21 General: Appears in no apparent distress. Behavior is calm, cooperative. Pain: Pain hb currently is 10 out of 10 on a pain scale. Neuro: Level of Consciousness is awake, alert, obeys commands, Oriented to person, place, time, situation. Cardiovascular: Capillary refill < 3 seconds Patient's skin is warm and dry. Respiratory: Respiratory effort is even, unlabored, Respiratory pattern is regular, symmetrical. GI: No signs and/or symptoms were reported involving the gastrointestinal system. : No signs and/or symptoms were reported regarding the genitourinary system. EENT: No signs and/or symptoms were reported regarding the EENT system. Derm: Skin is pink, warm \T\ dry. Musculoskeletal: Reports right foot and ankle pain. 16:12 Reassessment: Patient appears in no apparent distress at this time. Patient and/or hb family updated on plan of care and expected duration. Pain level reassessed. Patient is alert, oriented x 3, equal unlabored respirations, skin warm/dry/pink. Vital Signs: 15:14 BP 135 / 80; Pulse 98; Resp 16; Temp 99.1(TE); Pulse Ox 98% on R/A; Weight 79.38 kg; ss Height 5 ft. 6 in. (167.64 cm); Pain 10/10; 15:14 Body Mass Index 28.25 (79.38 kg, 167.64 cm) ED Course: 15:05 Patient arrived in ED. mr 15:06 Claritza Melo FNP-C [facility]. kb 15:06 Sam Jacinto MD is Attending Physician. kb 15:11 Arm band placed on. hb 15:11 Patient has correct armband on for positive identification. Bed in low position. Call hb light in reach. 15:15 Lizz Quintanilla, RN is Primary Nurse. hb 15:18 Triage completed. ss 15:35 Foot Right 3 View XRAY In Process Unspecified. EDMS 16:03 No provider procedures requiring assistance completed. Patient did not have IV access hb during this emergency room visit. 16:05 Alexander wrap to right ankle and right foot. dh3 Administered Medications: 15:21 Drug: [place] (7.5 mg-325 mg) 1 tabs Route: PO; hb 16:03 Follow up: Response: No adverse reaction hb Outcome: 15:59 Discharge ordered by . kb 16:04 Discharged to home via wheelchair. hb 16:04 Condition: stable 16:04 Condition: stable 16:04 Discharge instructions given to patient, Instructed on discharge instructions, follow up and referral plans. medication usage, Demonstrated understanding of instructions, follow-up care, medications, Prescriptions given X 1. 16:12 Patient left the ED. hb Signatures: Dispatcher [employer] EDMS Claritza Melo FNP-C FNP-Ckb [place] mr Shira Vallejo RN RN Lizz Quintanilla RN RN Vandana Krueger 3 Corrections: (The following items were deleted from the chart) 16:12 16:04 Discharged to home ambulatory, hb hb
[2020-08-21 16:17] VITALS: BP 135/80; TEMP 99.1; O2SAT 98
--- NOTE | 2020-08-21 16:32 | RAD REPORT ---
EXAM DESCRIPTION: RAD - Foot Right 3 View - 08/21/2020 3:35 pm CLINICAL HISTORY: PAIN COMPARISON: No comparisons FINDINGS: No fracture, dislocation or periosteal reaction. No acute or destructive bone process. Two small rounded bone densities adjacent to the lateral margin of the cuboid believed to be small acces connie ossicles and not bone avulsion. No air or foreign body in the soft tissues. IMPRESSION: Negative right foot examination.
== END 2020-08-21 16:12 | disposition home or self-care (01) ==
LOC: ER 15:02
DX: S93.601A Unspecified sprain of right foot, initial encounter (principal); X50.0XXA Overexertion from strenuous movement or load, initial encounter; Y92.009 Unspecified place in unspecified non-institutional (private) residence as the place of occurrence of the external cause
CPT/HCPCS: 99284